=== PATIENT | male | born 1990 | race Caucasian/White ===

== ENCOUNTER 2016-10-04 08:53 | Emergency (ER) | payer OTHER ==
[~2016-10-04] VITALS: Ht 188 cm; Wt 89.4 kg
[2016-10-04] MEDS ORDERED: IV SET PRIMARY 1 EA INFUS.SET MC ONE (09:16)
[2016-10-04] MEDS ORDERED: IV NS 0.9% 1,000 ML ONE (09:16)
[2016-10-04 09:26] LABS: BASOPHILS % (AUTO) 0.5 % (0.0-2.0); DIFF TOTAL % 100 %; EOSINOPHILS # (AUTO) 0.2 /CMM (0.0-0.7); EOSINOPHILS % (AUTO) 2.8 % (0.0-6.0); HEMATOCRIT 42 % (39-51); LYMPHOCYTES # (AUTO) 1.5 /CMM (0.8-4.8); MEAN CORPUSCULAR HEMOGLOBIN 30 PG (26.0-33.0); MEAN CORPUSCULAR HGB CONC 34 g/dl (31.0-36.0); MEAN CORPUSCULAR VOLUME 89 fL (80-96); MONOCYTES # (AUTO) 0.7 /CMM (0.1-1.30); MONOCYTES % (AUTO) 9.6 % (2.0-12.0); NEUTROPHILS # (AUTO) 4.7 /CMM (1.8-8.9); NEUTROPHILS % (AUTO) 66.1 % (43.0-81.0); PLATELET COUNT (AUTO) 219 /CMM (150-450); RED BLOOD CELL COUNT(AUTO) 4.69 MIL/uL (4.5-6.0); WHITE BLOOD COUNT (AUTO) 7.1 K/uL (4.3-11.0)
[2016-10-04 09:30] LABS: ADD UA MICROSCOPIC NO; KETONES,URINE NEGATIVE (NEGATIVE); LEUKOCYTE ESTERASE ,URINE NEGATIVE (NEGATIVE)
[2016-10-04] MEDS ORDERED: IV NS 0.9% 1,000 ML BAG IV ONE (09:30)
[2016-10-04 09:36] LABS: CALCIUM, SERUM 8.4 mg/dL (8.5-10.1)
[2016-10-04 10:17] VITALS: BP 129/84
== END 2016-10-04 10:18 | disposition home or self-care (01) ==
LOC: ER 08:56
DX: K59.00 Constipation, unspecified (principal)
CPT/HCPCS: 36415; 80048-TC; 81000-TC; 85025-TC; A4606; J7030; Z7610